=== PATIENT | female | born 1990 | race Caucasian/White ===

== ENCOUNTER 2024-05-15 18:50 | Inpatient (IN) | payer MEDICARE, SELFPAY ==
[2024-05-15] VITALS (29 sets, daily range): BP systolic 115–177; BP diastolic 47–96; BMI 36.2; BMI 33.8
--- NOTE | 2024-05-15 12:46 | ED.GENMED ---
History of Present Illness
General
Chief Complaint: Withdrawal Symptoms
Source: patient
Time Seen by Provider: 05/15/24 12:36
History of Present Illness
History of Present Illness:
33-year-old female presents to the emergency room stating she is withdrawing from fentanyl and tranc. Her last use was about 6 AM. She states she typically uses about 50 bags a day. She insufflated her drugs. She denies any IV drug use. She
cannot have Suboxone because it makes her sick evidently. Patient states she uses 40-50 bags a day.
Past History
Past History
ED Past Medical History: None
ED Past Surgical History: None
Social History
Tobacco: Smoker
Phy Exam
Physical Exam
Physical Exam:
General: Awake, Alert, Oriented X3. Tremulous, vomiting
Vitals: Tachycardic
Head: Atraumatic
Eyes: Pupils equal, EOMI
Throat: Airway intact, no exudates
Neck: Trachea midline
Lungs: Clear and equal b/l
Heart: Tachycardic, regular rate, no murmurs
Abd: Soft, Nontender, No pulsatile mass
Neuro: Nonfocal
Skin: Warm, dry, no rash
Extremities: pulses equal b/l, no edema
Course
Orders/Labs/Results
Orders:
Orders
05/15/24 12:42
Ondansetron Injectable [Zofran] 4 mg IV Q6HPRN PRN
05/15/24 12:46
0.9% Sodium Chloride 500 ml [Nss] 500 ml IV BOLUS
05/15/24 12:48
Test Result ONCE
05/15/24 13:00
Acetaminophen [Tylenol] 1,000 mg PO Q8H
Clonidine [Catapres] 0.1 mg PO Q6H
05/15/24 13:05
Electrocardiogram (*1) Urgent
Reason for Study: QTc Monitoring
05/15/24 13:06
EKG- Treatment ONCE
Haloperidol Lactate [Haldol] 5 mg IM NOW STA
05/15/24 13:25
ALT (SGPT) Urgent
Comment: ADD ON
AST (SGOT) Urgent
Comment: ADD ON
Alkaline Phosphatase Urgent
Comment: ADD ON
Basic Metabolic Panel Urgent
Complete Blood Count/With Diff Urgent
HCG, Serum Qualitative Screen Urgent
Magnesium Urgent
Comment: ADD ON
Phosphorus Urgent
Comment: ADD ON
Total Bilirubin Urgent
Comment: ADD ON
05/15/24 13:53
Add On- LAB Urgent
Tests Added?: hcg
05/15/24 14:19
0.9% Sodium Chloride 1000 ml [Nss] 1,000 ml IV BOLUS
Ondansetron Injectable [Zofran] 4 mg IV NOW STA
05/15/24 15:32
Abdomen Xray - 1 View [CR Abdomen - 1 View] Urgent
Comment:
Reason For Exam: constipation
05/15/24 15:41
Lorazepam [Ativan] 1 mg IV NOW STA
05/15/24 17:17
Clonidine [Catapres] 0.1 mg PO NOW STA
05/15/24 17:27
Add On- LAB Urgent
Tests Added?: T. Bili, AST, ALT, Alk Phos, Magnesium, Phosphorous
05/15/24 17:28
Potassium Chloride [KCl] 40 meq 0.9% Sodium Chloride 250 ml [Nss] 250 ml IV NOW
05/15/24 17:32
0.9% Sodium Chloride 1000 ml [Nss] 1,000 ml IV BOLUS
Lorazepam [Ativan] 1 mg IV NOW STA
05/15/24 17:41
Prochlorperazine [Compazine] 10 mg IV NOW STA
05/15/24 17:57
Admit/Transfer Patient As Directed
Co-Sign Provider:
Level of Care: Inpatient admission
Assign to:: ICU
Physician / Group: Belinda Lopez
Diagnosis: severe opiate withdrawal
Reason for Hospitalization: severe opiate withdrawal
Expected length of stay greater than two midnights?: Yes
ELOS- Estimated Length of Stay in days: 3
I certify the patient meets the requirements for IP care: Yes
Code Status As Directed
Resuscitation Status: Full Code
PRN Pain Medication Management As Directed
May give lesser potent ordered pain med per pt: Yes
preference::
Protocol:: Medication orders for pain may be administered in a
manner that supports deferring to patient preference
when the pt is:
- Requesting an ordered lesser potent pain medication.
Least to most potent pain medications are defined
as: acetaminophen < NSAID < tramadol < opioids
(morphine, oxycodone, hydromorphone).
- Requesting a lesser dose of the same medication IF
ORDERED.
- Requesting a less intrusive route of administration
if both routes are prescribed by the provider (PO <
IV).
05/15/24 18:00
Dexmedetomidine 400 Mcg/100 ml [Precedex] 400 mcg in 100 ml IV PER PROTOCOL
Indication:: Light Sedation
Goal:: RASS 0 to -2
Maximum dose in mcg/kg/hr:: 0.7
Initial dose in mcg/kg/hr:: 0.1
Titration Instructions:: Titrate by 0.1-0.2 mcg/kg/hr every 30 minutes until RASS 0 to -2 achieved.
Taper Instructions:: If RASS is at or below goal for 4 consecutive hours, decrease infusion by
Taper Instructions:: 0.2 mcg/kg/hr every 2 hours to off.
Over-sedation Instructions:: If CPOT 0-2 (at goal) AND RASS -3 to -5 (below goal) decrease sedative by
Over-sedation Instructions:: 50% first. If pain score remains at goal and RASS remains below goal in
Over-sedation Instructions:: 1 hour, decrease opioid infusion by 50%.
Notify provider:: for sustained HR < 50 bpm or SBP < 90 mmHg
05/15/24 18:06
Tizanidine [Zanaflex] 2 mg PO NOW STA
Abnormal Lab Results
05/15/24
13:25
WBC 19.7 H 10^3/uL
(4.8-10.8)
MCH 31.5 H pg
(27.0-31.0)
Abs Immat Gran (auto) 0.2 H 10^3/uL
(0-0.05)
Absolute Neuts (auto) 15.8 H 10^3/uL
(1.4-6.5)
Absolute Monos (auto) 1.8 H 10^3/uL
(0.1-0.6)
Immature Gran % 1.1 H %
(0-0.5)
Neutrophils % 80.1 H %
(42.2-75.2)
Lymphocytes % 9.5 L %
(20.5-51.1)
Potassium 3.3 L mmol/L
(3.5-5.1)
Chloride 97 L mmol/L
(98-107)
Carbon Dioxide 20 L mmol/L
(22-30)
Glucose 189 H mg/dl
(70-99)
05/15/24 13:25
05/15/24 13:25
Vital Signs
Initial and Last Documented VS:
Initial Vital Signs
Temp Pulse Resp BP Pulse Ox
99.4 F 128 22 145/92 99
05/15/24 10:27 05/15/24 10:27 05/15/24 10:27 05/15/24 10:27 05/15/24 10:27
Last Documented Vital Signs
Temp Pulse Resp BP Pulse Ox
98.9 F 148 20 132/73 96
05/15/24 17:10 05/15/24 17:15 05/15/24 17:10 05/15/24 17:10 05/15/24 17:10
MDM/Problems Addressed
Differential Diagnosis Includes:
Opiate withdrawal, xylazine w/d,
MDM/Problems Addressed:
Patient presents in acute withdrawal. She states she cannot tolerate buprenorphine. Besides her last use was this morning. Patient treated with her xylazine withdrawal protocol. Minimal improvement. Patient will require hospitalization
*Pulse Oximetry
Patient hypoxic: no
*EKG
Interpreted by ED Provider?: Yes
Interpretation: abnormal
Heart Rate: 139
Rate: tachycardiac
Rhythm: sinus tachycardia
Interval: normal interval
QRS Pattern: normal QRS
Ischemia: non-specific ST changes
*Supervisor [employer] Installations Interpretation
Rate: tachycardiac
Interpretation: abnormal
Rhythm: sinus tachycardia
*Critical Care Note
Total Time (30-74mins, 75-104mins- exclusive of procedures): 40 min
comment:
Critical care statement: A total of 40 minutes of critical care time was provided for this patient. This includes management of unstable vital signs, evaluation of the patient at bedside, reviewing the patient's pertinent medical records, discussion
with consultants, review of old EKGs and review of pertinent medical records. This time with separate from time utilized to perform the aforementioned documented procedures
ED Attending Note
-
Portions of this chart may have been created with voice recognition software.� Occasional wrong word or��sound alike� substitutions may have occurred due to the inherent limitations of voice recognition software.
Discharge Plan
Departure
Patient Disposition: Admit
Date of Disposition: 05/15/24
Time of Disposition: 17:09
Presentation/result/management discussed w/ accepting MD/DO: Hospitalist
Condition: Fair
Discharge Problem:
Opiate withdrawal, Opiate dependence
Instructions: Drug Misuse and Addiction (DC), Constipation, Adult ED
Prescriptions:
No Action
No Current Medications
0
Referrals:
UNKNOWN - PT NOT,INTERVIEWE [Family Provider] -
Interventions
Interventions:
*Risk Screen - Suicide Last Done: 05/15/24 10:27
*General Assessment Last Done: 05/15/24 10:27
*Neglect/Abuse Screening Last Done: 05/15/24 10:27
ED- Fall Risk Assessment Last Done: 05/15/24 13:06
*ED COVID-19 Vaccine History Last Done: 05/15/24 13:06
ED- Neurological Assessment Last Done: 05/15/24 13:51
ED-Psychological Assessment Last Done: 05/15/24 13:51
Discharge Date and Time
Print Language: KITTITIAN
[2024-05-15] MEDS: HALDOL 5 MG IM (13:21)
[2024-05-15] MEDS: NSS 500 IV (13:24)
[2024-05-15] MEDS: ZOFRAN 4 MG IV ×3 (13:25→20:36)
[2024-05-15] MEDS: CATAPRES 0.1 MG PO (13:34)
[2024-05-15] MEDS: TYLENOL 1000 MG PO ×2 (13:36→17:00)
[2024-05-15 13:39] LABS: % Basophils 0.4 % (0-2); % Immature Granulocytes 1.1 % (0-0.5); % Lymphocytes 9.5 % (20.5-51.1); % Monocytes 8.9 % (1.7-9.3); % Neutrophils 80.1 % (42.2-75.2); Absolute Basophils 0.1 10^3/uL (0-0.2); Absolute Immature Granulocytes 0.2 10^3/uL (0-0.05); Absolute Lymphocytes 1.9 10^3/uL (1.2-3.4); Absolute Monocytes 1.8 10^3/uL (0.1-0.6); Absolute Neutrophils 15.8 10^3/uL (1.4-6.5); Hematocrit 40.1 % (37.0-47.0); Hemoglobin 14.1 g/dL (12.0-16.0); Mean Corp Hgb Conc. 35.2 g/dL (33.0-37.0); Mean Corpuscular Hgb 31.5 pg (27.0-31.0); Mean Corpuscular Volume 89.7 fL (81.0-99.0); Nucleated Red Blood Cells % 0 %; Platelet Count 389 10^3/uL (130-400); Red Blood Cell Count 4.47 10^6/uL (4.20-5.40); Red Cell Dist. Width 13.7 % (11.5-14.5); White Blood Cell Count 19.7 10^3/uL (4.8-10.8)
[2024-05-15 13:49] LABS: Blood Urea Nitrogen 10 mg/dl (7-17); Calcium 9.6 mg/dl (8.4-10.2); Carbon Dioxide 20 mmol/L (22-30); Chloride 97 mmol/L (98-107); Glucose 189 mg/dl (70-99); Potassium 3.3 mmol/L (3.5-5.1); Sodium 137 mmol/L (135-145); eGFR > 60.00
[2024-05-15 14:16] LABS: HCG, Serum Qualitative Screen Negative
[2024-05-15] MEDS: NSS 1000 IV ×2 (14:33→17:41)
--- NOTE | 2024-05-15 15:30 | EDRN ---
this AUDIO VISUAL PRODUCTION SPECIALIST spoke with SUNDAY Bose regarding this pt . Per Lidya, this pt refused a [facility] assessment from Lidya and has been at [facility] in the past. Per Lidya, the pt was at [facility] a few days ago and the pt
told [facility] staff that she had not had a bowel movement in one month. [facility] the [facility] needs to be medically cleared and they require imaging studies to confirm there is no medical emergency in regards to the pts bowels. Per
Lidya, [facility] will accept the pt and can take her to their facility tonight pending the above clearances. ER Dr Scales was notified of above.
[facility] Fax # -> [phone]
SUNDAY Bose (until 8pm) contact # -> [phone]
[2024-05-15] MEDS: ATIVAN 1 MG IV ×3 (15:59→18:49)
--- NOTE | 2024-05-15 17:23 | HPS.HSE ---
Family Physician
-
Family Physician: INTERVIEWE UNKNOWN - PT NOT
Chief Complaint
-
withdrawal
History of Present Illness
Ms. Gisselle Sarmiento is a 33 yo woman with hx fentanyl and Xylazine abuse who presents to the ER with withdrawal. Patient reports using 40-50 bags/day, her last dose was 6AM.
Patient denies alcohol use. States doesn't use other drugs. She is in bed shaking after having vomited, unable to hold prolonged conversation because of discomfort.
She states that she had a bad reaction to Suboxone in past, 24 hours after last dose of opiate.
Denies chest pain. No recent fevers.
Medical History
Past Medical History
Past Medical History: Reports Other (opiate abuse)
Past Surgical History: Reports None
Social History
Tobacco: Smoker
Drug: Other (Fentanyl and Xylazine)
Family History
Family History: Not pertinent
Allergies / Home Medications
Allergies reflects when Allergies were last updated in [employer].
Home Medications with original date entered in [employer]
Allergy/Medication List:
Allergies
Allergy/AdvReac Type Severity Reaction Status Date / Time
Latex, Natural Rubber Allergy Intermediate Swelling Verified 05/15/24 10:27
Sulfa (Sulfonamide Allergy Intermediate Hives Verified 05/15/24 10:27
Antibiotics)
Home Medications
No Meds [No Current Medications] 05/15/24
Review of Systems
-
History Source: Patient
A 12 point ROS was completed and negative except as noted: Yes
Physical Exam
Vital Signs
Vital Signs
Temp Pulse Resp BP Pulse Ox
98.9 F 148 20 132/73 96
05/15/24 17:10 05/15/24 17:15 05/15/24 17:10 05/15/24 17:10 05/15/24 17:10
Physical Exam
General: Other (patient with whole body tremors after vomiting, looks very uncomfortable )
HEENT: PERRLA
Respiratory: No Wheezes
Cardiac: S1/S2 and Tachycardia
GI: Soft and Non Tender
Musculoskeletal: Other
Neuro: AO x 3
Psych: Anxious
Laboratory Results
-
05/15/24 13:25
05/15/24 13:25
Data Reviewed
-
Diagnostic Radiology: Report Reviewed by me
Lab Data: Labs Reviewed by me
Impression/Plan
-
Ms. Gisselle Sarmiento is a 33 yo woman with hx fentanyl and Xylazine abuse who presents to the ER with withdrawal. Her last dose of Fentanyl was 6AM.
Triage VS: T 99.4, P 128, RR 22, BP 145/92, SpO2 99%
LABS: WBC 19.7, Hg 14.1, PLT 389, Na 137, K+ 3.3, C 97, CO2 20, BUN 10, Cr 0.7, Glucose 189
HCG negative
EKG with sinus tachycardia; QTc 377
Abdominal X-Ray
IMPRESSION:
Large amount of fecal material throughout the colon. No evidence of intestinal obstruction
MAR: 2L IVF, IM Haldol, IV Ativan, IV Zofran, Clonidine
Fentanyl and Xylazine Withdrawal
Tachycardia
Nausea/Vomiting
-patient remains tachy to 150's, with nausea/vomiting and restlessness s/p medication administration above
-discussed with Dr. Curry, recommends against methadone, states IV Precedex gtt OK
-will admit to ICU
-IV Precedex gtt
-Tizanidine now and PRN
-discussed with pharmacy and will discuss low dose PRN Buprenorphine with patient (she initially refused given reported bad reaction to Suboxone after 24 hours after last dose)
-MSAS protocol for PRN Ativan administration (no drinking history, but will help guide benzo administration)
-IV Zofran/Compazine PRN
-LR @ 150
Opiate Abuse
-patient is accepted but needs to be medically stabilized first
Constipation
-X-ray with e/o constipation but anticipate patient to have loose stools with withdrawal
-bowel regimen ordered PRN when patient more stable if needed
Hypokalemia
-replete
-check Mag and Phos
DVT PPx Lovenox subQ
FULL CODE
Total Critical Care Time 60 minutes. I was immediately available to the patient and staff. I personally examined, reviewed labs, diagnostic images/reports, interpretations, treatment plans, discussed patient care with other providers and family
or caregivers (if patient is unable to make decisions), entered orders as appropriate and documented the medical record.
[2024-05-15] MEDS: COMPAZINE 10 MG IV (17:52)
[2024-05-15] MEDS: PRECEDEX 100 IV (18:23)
[2024-05-15 18:30] LABS: AST (SGOT) 92 U/L (14-36); Alkaline Phosphatase 89 U/L (38-126); Total Bilirubin 0.3 mg/dl (0.2-1.3)
[2024-05-15] MEDS: ZANAFLEX 2 MG PO (18:33)
[2024-05-15 18:36] LABS: Magnesium 1.5 mg/dl (1.6-2.3); Phosphorus 3.6 mg/dl (2.5-4.5)
[2024-05-15 18:46] LABS: ALT (SGPT) 113 U/L (0-35)
[2024-05-15] MEDS: OFIRMEV 100 IV (19:12)
[2024-05-15 19:55] LABS: COVID-19 Antigen Negative (Negative)
--- NOTE | 2024-05-15 19:55 | PTCARENOTE ---
Patient received from the ED via stretcher accompanied by RN. Transferred and admitted to ICU bed 3366. Patient is extremely agitated, rigid, tremulous, nauseated with dry heaving and at times old bile, dark emesis. She is currently on Precedex gtt
at 0.2mcg/kg/hr. Precedex gtt titrated as needed according to MSAS. She is also receiving Ativan prn per MSAS, see MAR. She is slightly diaphoretic. ST with HR 130-150s on CM. Temp 102.2F. CHG complete bath given with complete linen change. Purewick
placed. She follows commands at times but is inconsistent. BBS with UL clear anteriorly, diminished posteriorly and in bases, shallow respirations. S1S2 tachy. She is oriented to self, person and place but confused to time, QUINTERO. Zofran given prn
nausea. Scattered bruises of extremities and abdomen. Left groin at labia with MASD. Zinc oxide to area.
[2024-05-15] MEDS: TYLENOL PO ×2 (20:20→21:39)
[2024-05-15] MEDS: LR 1000 IV (20:31)
[2024-05-15] MEDS: ATIVAN 2 MG IV ×3 (20:36→23:42)
[2024-05-15] MEDS: MAGNESIUM SULFATE 100 IV (20:37)
[2024-05-15] MEDS: THIAMINE INJECTION 200 MG IV (20:38)
[2024-05-15] MEDS: KCL 270 MEQ IV (20:52)
[2024-05-15] MEDS: LOVENOX 40 MG SC (21:00)
[2024-05-15] MEDS: CATAPRES PO (21:01)
[2024-05-15] MEDS: SUBUTEX SL (21:08)
[2024-05-16] VITALS (36 sets, daily range): BP systolic 90–171; BP diastolic 56–121; BMI 34.2
--- NOTE | 2024-05-16 00:15 | SUR.OPER ---
No significant change in patient assessment. Patient remains markedly tremulous and tachycardic, with slight diaphoresis. Continues to require prn Ativan. Currently on Precedex at 0.5mcg/kg/min. HNV since admission, received 2 L IVF bolus in the ED.
Bladder scan shows 387cc in bladder. Straight cath for urine tests ordered and to relieve bladder pressure. 450cc yellow urine via straight cath. Purewick remains in place. Incontinent of moderate formed brown BM. Partial cares rendered with linens
changed.
[2024-05-16 01:02] LABS: Fentanyl, Urine Positive (Negative)
[2024-05-16 01:02] LABS: Urine Albumin Negative (Neg - Trace); Urine Bilirubin Negative (Negative); Urine Character Clear (Clear); Urine Color Yellow; Urine Glucose Negative (Negative); Urine Ketone 3+ (Negative); Urine Leukocyte Negative (Negative); Urine Nitrite Negative (Negative); Urine Occult Blood Negative (Negative); Urine Urobilinogen Negative (Neg - 1+)
[2024-05-16 01:06] LABS: Amphetamines Negative (Negative); Barbiturates Negative (Negative); Benzodiazepines Positive (Negative); Buprenorphine Negative (Negative); Cocaine Negative (Negative); Marijuana Negative (Negative); Methadone Negative (Negative); Methamphetamines Negative (Negative); Opiates Positive (Negative); Phencyclidine Negative (Negative); Tricyclic Antidepressants Negative (Negative)
[2024-05-16] MEDS: SUBUTEX SL ×2 (01:29→03:37)
[2024-05-16] MEDS: LR 1000 IV ×3 (03:10→15:15)
[2024-05-16] MEDS: PRECEDEX 100 IV ×2 (03:38→10:25)
--- NOTE | 2024-05-16 04:30 | PTCARENOTE ---
Patient appears to be resting comfortably when undisturbed with brief episodes of calling out, gross tremors and increased tachycardia. Reoriented as needed. Rest of physical assessment essentially unchanged. VSS. Patient is easily agitated and
grabs violently at staff with repositioning or cares. Emotional support and encouragement given as needed.
[2024-05-16 05:28] LABS: % Basophils 0.2 % (0-2); % Immature Granulocytes 0.8 % (0-0.5); % Lymphocytes 16.8 % (20.5-51.1); % Monocytes 17.4 % (1.7-9.3); % Neutrophils 64.8 % (42.2-75.2); Absolute Immature Granulocytes 0.1 10^3/uL (0-0.05); Absolute Lymphocytes 2.5 10^3/uL (1.2-3.4); Absolute Monocytes 2.6 10^3/uL (0.1-0.6); Absolute Neutrophils 9.7 10^3/uL (1.4-6.5); Hematocrit 30.8 % (37.0-47.0); Hemoglobin 10.9 g/dL (12.0-16.0); Mean Corp Hgb Conc. 35.4 g/dL (33.0-37.0); Mean Corpuscular Hgb 32.4 pg (27.0-31.0); Mean Corpuscular Volume 91.7 fL (81.0-99.0); Nucleated Red Blood Cells % 0 %; Platelet Count 263 10^3/uL (130-400); Red Blood Cell Count 3.36 10^6/uL (4.20-5.40); Red Cell Dist. Width 14.1 % (11.5-14.5); White Blood Cell Count 14.9 10^3/uL (4.8-10.8)
[2024-05-16 05:35] LABS: INR 1.12; PT 14.7 Sec (11.4-14.6)
[2024-05-16 05:36] LABS: APTT 36.9 Sec (23.4-35.0)
[2024-05-16 05:44] LABS: ALT (SGPT) 60 U/L (0-35); AST (SGOT) 48 U/L (14-36); Alkaline Phosphatase 79 U/L (38-126); Blood Urea Nitrogen 3 mg/dl (7-17); Calcium 7.6 mg/dl (8.4-10.2); Carbon Dioxide 23 mmol/L (22-30); Chloride 106 mmol/L (98-107); Direct Bilirubin 0.2 mg/dl (0.0-0.4); Estimated Creatinine Clearance > 125 ml/min; Glucose 97 mg/dl (70-99); Magnesium 2.2 mg/dl (1.6-2.3); Potassium 3.2 mmol/L (3.5-5.1); Sodium 141 mmol/L (135-145); Total Bilirubin 0.3 mg/dl (0.2-1.3); Total Protein 5.2 g/dl (6.3-8.2); eGFR > 60.00
[2024-05-16] MEDS: TYLENOL PO (06:00)
--- NOTE | 2024-05-16 07:15 | PTCARENOTE ---
Report given verbally to oncDaniele hale RN. Questions answered.
--- NOTE | 2024-05-16 07:55 | CON.INTV ---
Consultation
Consultation Request
Date/Time Consultation Requested: 05/16/2024
Date/Time Consultation Performed: 05/16/2024
Reason for Consultation: Critical care
Medical History
-
History of Present Illness:
History obtained from the chart and some history from the patient. 33-year-old female with history of regular fentanyl xylazine abuse. She apparently presented to the ED with withdrawal symptoms. Per additional history (per nursing), patient was
being assessed to go to inpatient rehabilitation and had told provider that she had not had a bowel movement in a month. She also was having emesis with any p.o. intake. Abdominal imaging done in the ED did show obstipation but did not show any
acute findings. Upon arrival to [facility], temperature 99.4, pulse 128, breathing at 22, blood pressure 145/92, 99%. Patient did develop tachycardia as high as in the 170s. She was given 1 dose of tizanidine p.o. Patient stated in the
ER that she does not take buprenorphine due to a reaction although this is not clear. We are asked to help from critical care standpoint
Regarding the patient, she was being evaluated for admission to inpatient rehabilitation on 05/16 at [facility].
She was also hospitalized 1 month ago for inpatient detox at [facility]
She was treated for dental abscess sometime in the past few months although patient cannot recall details. She states she is losing teeth
.
PMH: Chronic opiate use, dental abscess, inpatient detoxification admission [facility] April 2024
Past Medical History
Past Medical History: None (See above)
Past Surgical History: None (See above)
Social History
Tobacco: Smoker (Smokes cigarettes daily)
Alcohol: None
Drug: Other (Daily fentanyl use, obtains from her dealer)
Personal: Other (Lives with her boyfriend, has 2 children 13 and 15)
Living: With Family (Lives with her boyfriend)
Employment: Not Employed
Family History
Family History: Other (4 sisters healthy. Family history negative for blood clots)
Allergies / Home Medications
Allergies
Allergy/AdvReac Type Severity Reaction Status Date / Time
Latex, Natural Rubber Allergy Intermediate Swelling Verified 05/15/24 10:27
Sulfa (Sulfonamide Allergy Intermediate Hives Verified 05/15/24 10:27
Antibiotics)
Home Medications
�Medication �Instructions �Recorded �Confirmed �Last Taken �Type
No Meds [No Current Medications] 05/15/24 05/15/24 Unknown History
Review of Systems
-
Unable to Obtain full review of systems at this time due to: Acuity
Vitals / Labs / Diagnostic Testing
Vital Signs
Temp Pulse Resp BP Pulse Ox
99.7 F 120 33 144/78 97
05/16/24 03:29 05/16/24 07:30 05/16/24 07:30 05/16/24 07:30 05/16/24 07:30
Lab Data
05/16/24 05:02
05/16/24 05:02
Laboratory Results
05/16/24
05:02
PT 14.7 H
INR 1.12
APTT 36.9 H
Microbiology
05/15/24 19:28 Nasal Swab Influenza Types A & B (JOSE) - Final
Negative for Influenza A & B, NAAT
Negative results must be combined with clinical observations
and patient history.
Nucleic Acid Amplification test (NAAT)performed on the
[employer] platform.
Diagnostic Testing:
Physical Exam
-
HEENT: Normocephalic, Anicteric and Other (Poor dentition, missing teeth)
Cardiovascular: S1/S2, Regular Rhythm (Tachycardic), Murmur (n) and Rub
Respiratory: Wheeze (n), Rales (n), Rhonchi (n) and Non-Labored Respirations
GI: Soft, Non Distended (Obese) and Non Tender
Neurology: No Motor Deficits (Spontaneously moving extremities, not following commands) and Other (Intermittently agitated)
Skin: Good Color (Mild erythematous rash involving her face , no warmth)
General: Comfortable
Assessment
-
33-year-old female with history of fentanyl, xylazine abuse, 40-50 bags per day per records, last dose 05/15 at 6:00 in the morning, presents with 'withdrawal symptoms'. Additional history suggests chronic constipation, no bowel movement for about a
month. Patient was given 1 dose of oral tizanidine in the ED. We are asked to help from critical care standpoint
Tachycardia, heart rate 160s
Leukocytosis
Anemia, hemoglobin 10.9
Admission hemoglobin 14.1
Hypokalemia
Mild transaminitis
Positive tox screen (opiates, fentanyl, benzodiazepine)
Obstipation per imaging
Questionable lack of bowel movement for 1 month, emesis preadmission (details unclear)
Patient denies
History of fentanyl/xylazine use, daily
Was being evaluated for inpatient rehabilitation
Conditions present prior to admission
Recent history of dental abscess requiring antibiotics
Recent hospital stay at [facility] for inpatient detoxification 1 month prior
Plan/recommendations
At this time, patient remains critically ill. Heart rate in the 170s, presently in the 110s. Patient is at least able to provide history.
Leukocytosis noted
There is no clear source of infection at this time
Could not confirm whether patient has been having emesis preadmission
Records suggest possible obstipation, lack of bowel movement however patient had a bowel movement in the last 24 hours as an inpatient
Abdominal exam is benign
Moving forward
Continue with supportive care
Remains on IV fluids, lactated Ringer's
Follow-up I's and O's
Advance diet as able. Patient was apparently not tolerating and spitting up oral medications earlier
Presently remains on Precedex
Continue thiamine, folic acid
Xylazine withdrawal protocol will continue
Continue to follow COWS score
Patient denies any alcohol use therefore do not suspect we need MSAS protocol
Will decrease Ativan dose to as needed for extreme agitation
Continue tizanidine as able, clonidine per protocol
Patient with xylazine use in the past
DVT prophylaxis: Continue Lovenox
GI prophylaxis: Not indicated at this time
Attempted to contact boyfriend, no answer
According to patient, pts 2 children live with the boyfriend
Reviewed with critical care nursing, respiratory care, pharmacy, case management
TCCT 35 min
--- NOTE | 2024-05-16 08:00 | PTCARENOTE ---
Pt rec'd from night RN, restless in the bed, turning side to side, pulling at equipment and wires. AOx3 drowsy and arousable, COWS score 19 at this time, no c/o pain. Precedex gtt infusing to LAC, IVF to L hand, precedex increased -see flowsheet.
Plan of care reviewed. Pt noted to be in sinus tach on tele, HR in 120s, improved from previous shift. Pt with occ episodes of apnea while sleeping, desat to 81% when trialed on room air, remains on 2L nasal cannula 02 at this time. Lungs dim, nasal
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 Pt had previously been constipated per reports/notes. Plan discussed with care team on rounds. Safe environment maintained. Bed alarm activated.
[2024-05-16] MEDS: SUBUTEX 1 MG SL ×5 (08:46→22:12)
[2024-05-16] MEDS: THIAMINE INJECTION 200 MG IV ×2 (08:46→20:34)
[2024-05-16] MEDS: FOLVITE PO (08:47)
[2024-05-16] MEDS: FOLVITE 50.2 MG IV (11:56)
[2024-05-16] MEDS: KCL 270 MEQ IV (12:53)
--- NOTE | 2024-05-16 13:00 | PTCARENOTE ---
Precedex tapered per protocol-see flowsheet. Pt more awake, agreeable to taking some PO intake. Diet ordered, lunch tray arrived. Pt taking sips of raina iraida with assistance, some nausea and spitting up at times. Safe environment maintained.
--- NOTE | 2024-05-16 13:23 | W.PN.HOSP.TC ---
Today's Communication/Plan
-
COWS protocol
Psych recs
wean off precedex gtt
Advance diet
IVF in the interim
Bowel regimen
Assessment / Plan
Assessment / Plan
Fentanyl and Xylazine Withdrawal
Tachycardia
Nausea/Vomiting
-patient remains tachy to 150's, with nausea/vomiting and restlessness s/p medication administration above on admission
-try to wean off precedex gtt and monitor
-Tizanidine now and PRN
-discussed with pharmacy and will discuss low dose PRN Buprenorphine with patient (she initially refused given reported bad reaction to Suboxone after 24 hours after last dose) but taking it now
-[facility] protocol for PRN Ativan administration (no drinking history, but will help guide benzo administration)-can reduce ativan doses
-IV Zofran/Compazine PRN
-LR @ 150
-advanced diet and monitor
Opiate Abuse
-patient is accepted but needs to be medically stabilized first
Constipation 2/2 opiate abuse
-X-ray with e/o constipation but anticipate patient to have loose stools with withdrawal
-had bm in last 24h
-start miralax/senna/colace
Leukocytosis likely stress/reactive/constipation
-No signs of infection. UA negative. Blood cultures in lab. No productive cough. Not concern for pneumonia at this time.
Hypokalemia
Hypophosphatemia
-replete
-check Mag and Phos
DVT PPx Lovenox subQ
FULL CODE
Anticipated Discharge: > 48 hours
Subjective/Interval History
-
Date of Service: May 16, 2024
awake and able to provide some history
does fall asleep as on precedex
States she snorts drugs. Denies prior history of IV drug usage.
Objective Data
-
Labs:
Laboratory Results
05/16/24
05:02
WBC 14.9 H
Hgb 10.9 L D
Hct 30.8 L
Plt Count 263 D
PT 14.7 H
INR 1.12
APTT 36.9 H
Sodium 141
Potassium 3.2 L
Chloride 106
Carbon Dioxide 23
BUN 3 L
Creatinine 0.4 L
Glucose 97
Calcium 7.6 L D
Total Bilirubin 0.3
AST 48 H
ALT 60 H
Alkaline Phosphatase 79
Vital Signs:
Vital Signs
Temp Pulse Resp BP Pulse Ox
98.6 F 106 18 163/69 97
05/16/24 08:39 05/16/24 13:00 05/16/24 13:00 05/16/24 13:00 05/16/24 13:00
I&O
05/15/24 05/16/24 05/17/24
06:59 06:59 06:59
Intake Total 2061.5 / 2224.9 1268.3 / 1268.3
Output Total 450 / 450
Balance 1611.5 / 1774.9 1268.3 / 1268.3
Physical Exam
-
General: Appears Chronically Ill
HEENT: Normocephalic and Atraumatic
Respiratory: Clear to Auscultation (anteriorly )
Cardiac: Regular Rhythm, S1/S2 and Tachycardic; Negative Murmur, Rub or Gallop
GI: Soft, Nontender, Nondistended and Normal Bowel Sounds; Negative Organomegaly
Rectal: Deferred by Provider
Musculoskeletal: No Clubbing, No Cyanosis and No Edema
Skin: Negative Rash
Neuro: Nonfocal/Grossly Intact
Psych: Calm
Data Reviewed
-
Total Time Spent with Patient (in minutes): 55
--- NOTE | 2024-05-16 14:29 | CS.PSYCHR ---
Consult Summary - Psychiatry
-
Pt is a 33 yo female with fentanyl and Xylazine abuse who presented to the ER c/o withdrawal. Patient reported using 40-50 bags/day, her last dose was 6AM the day of admission. Patient denied alcohol or other drug use. Pt noted with N/V, tremor,
aches. Pt initially refused Subutex, stating past negative reaction within 24 hours of last opioid use. Pt took Subutex 1 mg this morning. Pt currently sedated on Precedex. Reviewed with nursing staff. Pt was on MSAS, received Ativan 2 mg
yesterday, discontinued today.
Psych Hx: none known
Substance use: reportedly Fentanyl and Xylazine
MSE: sedated, resting quietly. Unable to interview
Imp: Opioid and Xylazine use, severe
Rec: would utilize the Subutex protocol; would expect daily dose to be 8- 16 mg to manage withdrawal symptoms
would encourage drug rehab when medically stabilized
will follow loosely
--- NOTE | 2024-05-16 14:35 | CM ---
CM following rte: discharge planning.
Reviewed pt's chart, met with pt.
Pt is a 33 year old female, admitted with primary dx of Fentanyl and Xylazine Withdrawal.
Pt reports she lives with boyfriend and 2 children in an apartment, independent [employer]. Pt reports that [facility] already involved regarding well being of her children and per pt her children with be with her as long as she
stays sober. Emotional support and encouragement to get treatment offered and provided. Pt stated she has parents and she has not been talking to them for a while and per pt, her parents are very upset about her drugs addiction.
Pt stated she already met with [facility] on the weekend in ED and she has a room at [facility].
PCP: pt stated she does not have PCP;
Pharmacy: [facility].
D/C plan: [facility] inpatient D&[facility] rehab. [facility] following.
CM will follow to assit pt with discharge to [facility] inpatient residential D[facility] rehab.
[2024-05-16] MEDS: TYLENOL 1000 MG PO ×2 (14:59→21:49)
[2024-05-16] MEDS: ZOFRAN 4 MG IV ×2 (15:01→21:50)
--- NOTE | 2024-05-16 15:08 | PTCARENOTE ---
Pt was unable to void this shift, complaining of feeling need to urinate but could not. Pt straight cath'd by another RN for 900 mls yellow urine. Pt more awake, conversant, cooperative with staff this afternoon. No complaints of pain at this time.
Precedex tapered per protocol/assessments. See flowsheet.
--- NOTE | 2024-05-16 17:40 | PTCARENOTE ---
Precedex weaned to off, see flow sheet for COWS assessments. Last score 8. Pt has been cooperative with cares and taking PO meds safely. Continues with poor appetite.
[2024-05-16] MEDS: ZANAFLEX 2 MG PO (18:10)
[2024-05-16] MEDS: SODIUM PHOSPHATE 255 MEQ IV (18:10)
[2024-05-16] MEDS: COMPAZINE 10 MG IV ×2 (18:10→23:53)
[2024-05-16] MEDS: LOVENOX 40 MG SC (18:11)
[2024-05-16] MEDS: ATIVAN 1 MG PO ×2 (18:36→22:10)
--- NOTE | 2024-05-16 19:25 | PTCARENOTE ---
Assisted pt to bedside commode to have another hard formed brown BM. Report given to night EDGARDO Hurley.
--- NOTE | 2024-05-16 20:00 | PTCARENOTE ---
Patient received in bed awake but groggy. Very agitated and restless, marked gross motor tremors, face moist, tachycardic. She is oriented. COWS score is 20. Scheduled Subutex given as ordered. She says that she hurts 'all over.' Prn Toradol given
for discomfort. BBS clear but shallow, respirations tachypneic. S1S2 tachycardic. Abdomen obese, c/o cramping. Occasional nausea. ST 110-120s on CM.
[2024-05-16] MEDS: TORADOL 10 MG IV (20:28)
[2024-05-16] MEDS: SENOKOT-S 1 TABLET PO (20:30)
--- NOTE | 2024-05-16 22:30 | PTCARENOTE ---
Addendum entered by Mei Paulino RN 05/17/24 02:52:
[facility] notified, extra dose of 1mg Subutex SL given.
Original Note:
Patient is incontinent of BM. COWS 25. Po meds were given including Ativan given prn. Patient vomited all she took in. Zofran given prn. Complete cares given with complete linen change. IV Ativan since patient vomited meds. Emotional support and
encouragement provided.
--- NOTE | 2024-05-16 23:30 | PTCARENOTE ---
Patient continues to be nauseated and have episodes of vomiting. Compazine given prn. HNV. Bladder scanned for 423cc. Straight cath for 450cc natalie urine. Patient continues to become more agitated and difficult to redirect. ST 120s. Temp 100.7F.
Incontinent of Stool. Complete cares again given due to emesis and incontinence, complete linens changed. COWS has increased to 33. Due to worsening of symptoms, Precedex gtt restarted, titrated for improvement of COWS score and patient comfort.
[2024-05-17] VITALS (21 sets, daily range): BP systolic 111–157; BP diastolic 59–99; BMI 33.9
[2024-05-17] MEDS: SUBUTEX 1 MG SL ×3 (00:19→08:29)
[2024-05-17] MEDS: CATAPRES PO ×5 (00:20→23:37)
[2024-05-17] MEDS: PRECEDEX 100 IV ×4 (00:25→22:51)
--- NOTE | 2024-05-17 01:00 | PTCARENOTE ---
COWS score 28. Precedex titrated up as needed. Patient incontinent of stool and has thrown stool at the wall. Patient is oriented, denies hallucinations. Unable to state reason for her behavior.
[2024-05-17] MEDS: LR 1000 IV (01:07)
[2024-05-17] MEDS: ZANAFLEX 2 MG PO (02:19)
--- NOTE | 2024-05-17 02:20 | PTCARENOTE ---
Patient continues to be tremulous and agitated. Has not vomited recently. Took Zanaflex with small sip of water. No change in precedex rate.
[2024-05-17 04:13] LABS: % Basophils 0.5 % (0-2); % Eosinophils 0.1 % (0-6); % Immature Granulocytes 1.9 % (0-0.5); % Lymphocytes 19.5 % (20.5-51.1); Absolute Basophils 0.1 10^3/uL (0-0.2); Absolute Immature Granulocytes 0.2 10^3/uL (0-0.05); Absolute Lymphocytes 2.1 10^3/uL (1.2-3.4); Absolute Monocytes 1.4 10^3/uL (0.1-0.6); Hematocrit 29.3 % (37.0-47.0); Hemoglobin 10.2 g/dL (12.0-16.0); Mean Corp Hgb Conc. 34.8 g/dL (33.0-37.0); Mean Corpuscular Hgb 31.6 pg (27.0-31.0); Mean Corpuscular Volume 90.7 fL (81.0-99.0); Mean Platelet Volume 10.5 fL (7.4-10.4); Nucleated Red Blood Cells % 0.2 %; Platelet Count 241 10^3/uL (130-400); Red Blood Cell Count 3.23 10^6/uL (4.20-5.40); Red Cell Dist. Width 14.5 % (11.5-14.5); White Blood Cell Count 10.8 10^3/uL (4.8-10.8)
[2024-05-17 04:29] LABS: Blood Urea Nitrogen < 2 mg/dl (7-17); Calcium 8.1 mg/dl (8.4-10.2); Carbon Dioxide 26 mmol/L (22-30); Chloride 104 mmol/L (98-107); Estimated Creatinine Clearance > 125 ml/min; Glucose 106 mg/dl (70-99); Potassium 2.9 mmol/L (3.5-5.1); Sodium 139 mmol/L (135-145); eGFR > 60.00
--- NOTE | 2024-05-17 04:30 | PTCARENOTE ---
Patient COWS improving. Precedex gtt weaned off. Otherwise physical assessment unchanged. AM labs drawn.
[2024-05-17] MEDS: KCL 270 MEQ IV ×2 (05:24→11:38)
--- NOTE | 2024-05-17 05:45 | PTCARENOTE ---
Precedex gtt has been off since 429. Patient is more tremulous, flushed, restless and anxious. Vomiting and wretching, emesis clear and green bile. Zofran given prn, 1mg Ativan given for COWS 21. Emotional support and encouragement given.
Incontinent of stool, skin care and partial linen change. Left AC SL IV site redressed.
[2024-05-17] MEDS: ZOFRAN 4 MG IV (05:51)
[2024-05-17] MEDS: ATIVAN 1 MG IV (05:51)
[2024-05-17] MEDS: TYLENOL PO ×3 (06:05→20:45)
--- NOTE | 2024-05-17 07:07 | PTCARENOTE ---
Report given verbally to RN assuming care, Disa. Questions answered.
--- NOTE | 2024-05-17 07:15 | PTCARENOTE ---
[facility], restless and tossing and turning in bed. Pt AOx3 but groaning and whining intermittently, states 'I just don't feel good.' Emotional support provided. Pt nauseous and unable to take POs other than SL Subutex. COWs score
18. PRN Compazine administered per protocol with +relief. Pt endorses poor appetite, does not want a meal tray. Pt diaphoretic, flushed, tachycardic and tachypneic. Sa02 96% on room air. Pt with no void, bladder scanned and straight cath'd per
protocol, see flowsheet. Left hand PIV leaking and painful with flush, discontinued at this time. Plan discussed with care team and patient. Safe environment maintained.
--- NOTE | 2024-05-17 08:26 | W.PN.INTV ---
Today's Communication / Plan
Recommendations
Resume Precedex
Continue withdrawal protocol
P.o. as able
Antiemetic therapy
Continue IV fluids
Assessment
-
33-year-old female with history of fentanyl, xylazine abuse, 40-50 bags per day per records, last dose 05/15 at 6:00 in the morning, presents with 'withdrawal symptoms'. Additional history suggests chronic constipation, no bowel movement for about a
month. Patient was given 1 dose of oral tizanidine in the ED. We are asked to help from critical care standpoint
Tachycardia, heart rate 160s
Leukocytosis
Anemia, hemoglobin 10.9
Admission hemoglobin 14.1
Hypokalemia
Mild transaminitis
Positive tox screen (opiates, fentanyl, benzodiazepine)
Obstipation per imaging
Questionable lack of bowel movement for 1 month, emesis preadmission (details unclear)
Patient denies
History of fentanyl/xylazine use, daily
Was being evaluated for inpatient rehabilitation
Conditions present prior to admission
Recent history of dental abscess requiring antibiotics
Recent hospital stay at [facility] for inpatient detoxification 1 month prior
Plan/recommendations
At this time, patient remains critically ill. Heart rate in the 170s, presently in the 110s.
Emesis intermittently throughout the night
Tremulous, tachycardic
Precedex off
Able to tolerate few oral doses of Suboxone and Zanaflex
Moving forward
Continue with supportive care
Remains on IV fluids, lactated Ringer's
Follow-up I's and O's
Advance diet as able. Patient was apparently not tolerating and spitting up oral medications earlier
Resume Precedex
Continue thiamine, folic acid
Xylazine withdrawal protocol will continue
Continue to follow COWS score
Patient denies any alcohol use therefore do not suspect we need MSAS protocol
Will decrease Ativan dose to as needed for extreme agitation
check lipase
Add PPI
Continue tizanidine as able, clonidine per protocol
Patient with xylazine use in the past
DVT prophylaxis: Continue Lovenox
GI prophylaxis: Add PPI
Attempted to contact boyfriend, no answer
According to patient, pts 2 children live with the boyfriend
Reviewed with critical care nursing, respiratory care, pharmacy, case management
Subjective Dataa
Subjective Data
Date of Service:
Date of Service: May 17, 2024
Subjective:
Patient continues to be tremulous, nauseous throughout the night. She was able to take few doses of Zanaflex and Suboxone. COWS elevated as high as 30. Patient lying flat, does not appear to be in respiratory distress but is tremulous
Objective Data
Data Reviewed
Vital Signs / I&O / Oxygen:
Vital Signs
Temp Pulse Resp BP Pulse Ox
98.2 F 111 33 140/62 97
05/17/24 08:14 05/17/24 08:04 05/17/24 08:04 05/17/24 08:04 05/17/24 08:04
Intake and Output
05/16/24 05/17/24 05/18/24
06:59 06:59 06:59
Intake Total 2061.5 / 2224.9 3884.15 / 4051.65 335.0 / 335.0
Output Total 450 / 450 1550 / 1550
Balance 1611.5 / 1774.9 2334.15 / 2501.65 335.0 / 335.0
SaO2 97
Nasal Cannula flow liters per 2
minute
Physical Exam
General: Other (Poor dentition) and Other (Tremulous)
HEENT: Normocephalic
Cardiovascular: S1-S2, Regular Rhythm (Tachycardic), Murmur (n) and Rub (n)
Respiratory: Wheeze (n), Crackles (n), Rhonchi (n), Non-Labored Respirations and Other (Poor respiratory effort)
GI: Soft, Non Distended and Non Tender
Neurology: Awake, Alert and No Motor Deficits (Moves all extremities)
Skin: Cyanosis (n), Jaundice (n) and Rash (n)
Labs/Micro/Reports
Lab Data
05/17/24 03:49
Microbiology
05/15/24 19:30 Blood/Venous Blood Culture - Preliminary
No Growth in 24 hours- Final report to follow
05/15/24 19:28 Blood/Venous Blood Culture - Preliminary
No Growth in 24 hours- Final report to follow
05/15/24 19:28 Nasal Swab Influenza Types A & B (JOSE) - Final
Negative for Influenza A & B, NAAT
Negative results must be combined with clinical observations
and patient history.
Nucleic Acid Amplification test (NAAT)performed on the
[employer] platform.
[2024-05-17] MEDS: SENOKOT-S 1 TABLET PO (08:29)
[2024-05-17] MEDS: FOLVITE 1 MG PO (08:29)
[2024-05-17] MEDS: THIAMINE INJECTION 200 MG IV ×2 (08:30→20:45)
[2024-05-17] MEDS: COMPAZINE 10 MG IV (08:30)
[2024-05-17] MEDS: MIRALAX PO (09:57)
--- NOTE | 2024-05-17 10:21 | PTCARENOTE ---
Precedex restarted per mobile web application developer at 09:58 for ongoing w/d sx. Pt again moving bowels in her bed and throwing on the floor. Spitting up clear liquid in small amount over siderail and retching intermittently. Complete bath and linens changed,
education re: appropriate behavior reinforced. Safe environment maintained.
--- NOTE | 2024-05-17 10:30 | CM ---
CM received call from Trev Rader from [facility] phone number [phone] and he requested CM call him when discharged and update regarding plan of care. CM will continue to follow for discharge planning needs.
Plan; [facility] per chart review.
[2024-05-17] MEDS: SUBUTEX SL ×5 (11:28→23:37)
[2024-05-17 11:54] LABS: Magnesium 1.8 mg/dl (1.6-2.3)
[2024-05-17 12:58] LABS: Lipase 552 U/L (23-300)
--- NOTE | 2024-05-17 13:21 | W.PN.HOSP.TC ---
Today's Communication/Plan
-
COWS protocol
subutex
IVF with KCL
replete lytes aggressively
Precedex
Assessment / Plan
Assessment / Plan
Fentanyl and Xylazine Withdrawal
Severe opiate abuse on daily basis
Tachycardia
Nausea/Vomiting
-patient remains tachy to 150's, with nausea/vomiting and restlessness s/p medication administration above on admission
-restarted on precedex
-Tizanidine now and PRN
-Cont with subutex-per psych
-prn IV ativan
-IV Zofran/Compazine PRN
-LR with KCL.
-advanced diet and monitor. Encourage po intake.
-ICU and Psych recs
Opiate Abuse
-patient is accepted but needs to be medically stabilized first
Constipation 2/2 opiate abuse
-X-ray with e/o constipation but anticipate patient to have loose stools with withdrawal
-had bm in last 24h
-start miralax/senna/colace
Leukocytosis likely stress/reactive/constipation
-No signs of infection. UA negative. Blood cultures in lab. No productive cough. Not concern for pneumonia at this time.
Hypokalemia
Hypophosphatemia
-replete
DVT PPx Lovenox subQ
FULL CODE
Anticipated Discharge: > 48 hours
Subjective/Interval History
-
Date of Service: May 17, 2024
pt with severe nausea vomiting and loose bowel movements at times
Unable to tolerate p.o. intake
Objective Data
-
Labs:
Laboratory Results
05/17/24 05/17/24 05/17/24
03:49 12:00 17:00
WBC 10.8
Hgb 10.2 L
Hct 29.3 L
Plt Count 241
Sodium 139 Cancelled Pending
Potassium 2.9 L Cancelled Pending
Chloride 104 Cancelled Pending
Carbon Dioxide 26 Cancelled Pending
BUN < 2 L Cancelled Pending
Creatinine 0.5 L Cancelled Pending
Glucose 106 H Cancelled Pending
Calcium 8.1 L Cancelled Pending
Vital Signs:
Vital Signs
Temp Pulse Resp BP Pulse Ox
98.4 F 93 37 135/63 94
05/17/24 11:15 05/17/24 11:27 05/17/24 11:02 05/17/24 11:27 05/17/24 11:02
I&O
05/16/24 05/17/24 05/18/24
06:59 06:59 06:59
Intake Total 2061.5 / 2224.9 3884.15 / 4051.65 720.6 / 720.6
Output Total 450 / 450 1550 / 1550
Balance 1611.5 / 1774.9 2334.15 / 2501.65 720.6 / 720.6
Physical Exam
-
General: Appears Chronically Ill and Other (looks older compared to stated age )
HEENT: Normocephalic and Atraumatic
Respiratory: Clear to Auscultation (anteriorly )
Cardiac: Regular Rhythm, S1/S2 and Tachycardic; Negative Murmur, Rub or Gallop
GI: Soft, Nontender, Nondistended and Normal Bowel Sounds; Negative Organomegaly
Rectal: Deferred by Provider
Musculoskeletal: No Clubbing, No Cyanosis and No Edema
Skin: Negative Rash
Neuro: Awake and Nonfocal/Grossly Intact
Psych: Calm
Data Reviewed
-
Total Time Spent with Patient (in minutes): 55
[2024-05-17] MEDS: LR IV (13:22)
--- NOTE | 2024-05-17 13:30 | PTCARENOTE ---
Precedex titrated per order, see flowsheet, currently infusing at 0.5 mcg....pt resting quietly. input output clerk at bedside to assess pt. Plan discussed with attending, IVF changed to LR with 40 meQ Kcl. Pt again incontinent of brown formed BM in bed. Does
not show interest in toileting appropriately. Hygiene care provided. Safe environment maintained.
--- NOTE | 2024-05-17 13:42 | CON.MD ---
Documented by User: Dianna Tejada MD, Resident 05/17/24 14:21
Consultation - Medical
-
CONSULTING PHYSICIAN: Dr. Ada Michaud
REFERRING PHYSICIAN: Dr. Alannah Chaves
DATE/TIME OF REQUEST: 05/17/2024
DATE/TIME OF CONSULTATION: 05/17/2024
REASON FOR CONSULT: Possible herpes infection
HISTORY OF PRESENT ILLNESS: This is a 33 year old 7 para 2 female patient who presented to ED with withdrawal from drug abuse from fentanyl and xylazine. She is presently being treated for withdrawal symptoms. As per nursing, a single
lesion on her left lower buttock near the vaginal area was noticed today which patient was unaware of. Pt does not remember experiencing similar findings before and denies any associated pain, vaginal bleeding, discharge from lesion or fever. She
does endorse regular periods (most recent period a few days ago), is sexually active and states that she does not regularly follow up with OBGYN.
PAST MEDICAL HISTORY: Drug Abuse
PAST SURGICAL HISTORY: delivery
PAST OBSTETRIC HISTORY: section x1 in 2009, 4 abortions, 1 miscarriage
FAMILY HISTORY: Not pertinent
SOCIAL HISTORY: Smoking history present (1pack/day), History of drug abuse (fentanyl/xylazine). No alcohol use.
ALLERGIES: Latex, Sulfa.
REVIEW OF SYSTEMS: Negative other than per HPI.
MEDICATIONS: No regular home medications.
PHYSICAL EXAMINATION:
VITAL SIGNS: Afebrile, BP 135/63 HR 93
GENERAL: On exam, patient in no acute distress.
ABDOMEN: Soft, nontender, nondistended
GENITOURINARY: Very small inflamed lesion on left lower buttock with surrounding mild erythema with minimal discharge present on palpation, likely ingrown hair. Similar ingrown hair finding slightly above initial lesion.
ASSESSMENT AND PLAN:
-Likely inflamed ingrown hair: Would advise conservative measures such as warm compresses at present as lesion does not appear to be actively infected. Watch for any high grade fevers, purulent discharge.

Documented by User: Ada Michaud DO 05/17/24 14:28
Consultation - Medical
-
CONSULTING PHYSICIAN: Dr. Ada Michaud
REFERRING PHYSICIAN: Dr. Alannah Chaves
DATE/TIME OF REQUEST: 05/17/2024
DATE/TIME OF CONSULTATION: 05/17/2024
REASON FOR CONSULT: Possible herpes infection
HISTORY OF PRESENT ILLNESS: This is a 33 year old 8 para 2 female patient who presented to ED with withdrawal from drug abuse from fentanyl and xylazine. She is presently being treated for withdrawal symptoms. As per nursing, a single
lesion on her left lower buttock near the vaginal area was noticed today which patient was unaware of. Pt does not remember experiencing similar findings before and denies any associated pain, vaginal bleeding, discharge from lesion or fever. She
does endorse regular periods (most recent period a few days ago), is sexually active and states that she does not regularly follow up with OBGYN. She denies any history of herpes outbreak or sexually transmitted diseases.
PAST MEDICAL HISTORY: Drug Abuse
PAST SURGICAL HISTORY: delivery
PAST OBSTETRIC HISTORY: section x1 in 2009, 4 abortions, 1 miscarriage, SVDx1
FAMILY HISTORY: Not pertinent
SOCIAL HISTORY: Smoking history present (1pack/day), History of drug abuse (fentanyl/xylazine). No alcohol use.
ALLERGIES: Latex, Sulfa.
REVIEW OF SYSTEMS: Negative other than per HPI.
MEDICATIONS: No regular home medications.
PHYSICAL EXAMINATION:
VITAL SIGNS: Afebrile, BP 135/63 HR 93
GENERAL: On exam, patient in no acute distress.
ABDOMEN: Soft, nontender, nondistended
GENITOURINARY: Very small inflamed lesion on left lower buttock with surrounding mild erythema with minimal discharge present on palpation, white head present, small amount of drainage when probed, likely ingrown hair. Similar ingrown hair finding
slightly above initial lesion with no white head. Neither lesion tender to palpation
ASSESSMENT AND PLAN:
-Likely ingrown hair/white head: Would advise conservative measures such as warm compresses at present as lesion does not appear to be actively infected. Watch for any high grade fevers, purulent discharge. Lesion does not appear consistent with
herpes outbreak.
[2024-05-17] MEDS: KCL 1020 MEQ IV (13:46)
[2024-05-17] MEDS: NSS (PRESERVATIVE FREE) 10 ML IV (14:25)
[2024-05-17] MEDS: PROTONIX IV 40 MG IV (14:25)
[2024-05-17] MEDS: LOVENOX 40 MG SC (17:34)
[2024-05-17 18:32] LABS: Blood Urea Nitrogen < 2 mg/dl (7-17); Carbon Dioxide 27 mmol/L (22-30); Estimated Creatinine Clearance > 125 ml/min; Glucose 102 mg/dl (70-99); Magnesium 1.9 mg/dl (1.6-2.3); eGFR > 60.00
[2024-05-17 18:40] LABS: Chloride 107 mmol/L (98-107); Potassium 3.5 mmol/L (3.5-5.1); Sodium 140 mmol/L (135-145)
--- NOTE | 2024-05-17 19:22 | PTCARENOTE ---
Pt remained calm this afternoon -Precedex continues-pt resting when undisturbed, easily aroused to voice. Followup BMP sent, results noted. Handoff report given to night RN Tamiko. Safe environment maintained.
[2024-05-17] MEDS: SENOKOT-S PO (19:24)
--- NOTE | 2024-05-17 20:00 | PTCARENOTE ---
Patient received lying in bed, restless and turning from side to side on occasion. COWS 9. On Precedex gtt at 0.7mcg/kg/hr. Remains tremulous. Slight nausea. BBS clear. S1S2 regular. SR on CM with borderline 1st degree AVB. Pulses positive x 4
extrem. Denies urge to void. No BM. Low grade temp 99.4F. Cooperative, rouses easily. Resting quietly when undisturbed.
[2024-05-18] VITALS (9 sets, daily range): BP systolic 117–160; BP diastolic 68–97
--- NOTE | 2024-05-18 | PTCARENOTE ---
Patient is awake while on Precedex gtt. She is conversational, calm but nauseated. No tremors noted. Taking po ice chips in small amounts. Denies urge to void. Bladder scanned for 126cc urine. Able to call boyfriend on cell phone.
[2024-05-18] MEDS: KCL 1020 MEQ IV (02:20)
[2024-05-18] MEDS: SUBUTEX SL (03:26)
[2024-05-18] MEDS: PRECEDEX 100 IV (05:00)
[2024-05-18] MEDS: TYLENOL 1000 MG PO (05:49)
[2024-05-18] MEDS: CATAPRES 0.1 MG PO ×2 (05:49→11:40)
[2024-05-18 06:29] LABS: % Basophils 0.5 % (0-2); % Lymphocytes 23.7 % (20.5-51.1); % Monocytes 12.7 % (1.7-9.3); % Neutrophils 61.1 % (42.2-75.2); Absolute Immature Granulocytes 0.2 10^3/uL (0-0.05); Absolute Lymphocytes 1.9 10^3/uL (1.2-3.4); Hematocrit 29.3 % (37.0-47.0); Hemoglobin 10.3 g/dL (12.0-16.0); Mean Corp Hgb Conc. 35.2 g/dL (33.0-37.0); Mean Corpuscular Hgb 32.1 pg (27.0-31.0); Mean Corpuscular Volume 91.3 fL (81.0-99.0); Mean Platelet Volume 9.6 fL (7.4-10.4); Nucleated Red Blood Cells % 0.2 %; Platelet Count 197 10^3/uL (130-400); Red Blood Cell Count 3.21 10^6/uL (4.20-5.40); Red Cell Dist. Width 14.5 % (11.5-14.5); White Blood Cell Count 8.2 10^3/uL (4.8-10.8)
[2024-05-18 06:51] LABS: Blood Urea Nitrogen 3 mg/dl (7-17); Calcium 8.7 mg/dl (8.4-10.2); Carbon Dioxide 23 mmol/L (22-30); Chloride 110 mmol/L (98-107); Estimated Creatinine Clearance 123 ml/min; Glucose 110 mg/dl (70-99); Magnesium 1.8 mg/dl (1.6-2.3); Potassium 4.1 mmol/L (3.5-5.1); Sodium 140 mmol/L (135-145); eGFR > 60.00
--- NOTE | 2024-05-18 07:31 | PTCARENOTE ---
Received pt awake & alert, incontinent of formed brown stool. Pt states she feels better and plans to leave today. Discussed POC w/ pt. Pt calm, follows commands. VSS. L PIV leaking. Precedex gtt and IVFs on standby. IV team notified for new IV. Pt
w/ no urine output overnight. Bladder scanned for 171ml.
--- NOTE | 2024-05-18 07:45 | W.PN.INTV ---
Today's Communication / Plan
Recommendations
Continue Suboxone, side effects per protocol
Discontinue Precedex at noon
Continue IV fluids till completion, advance diet
Nausea improved
Hopefully will pursue inpatient rehab in the near future
Assessment
-
33-year-old female with history of fentanyl, xylazine abuse, 40-50 bags per day per records, last dose 05/15 at 6:00 in the morning, presents with 'withdrawal symptoms'. Additional history suggests chronic constipation, no bowel movement for about a
month. Patient was given 1 dose of oral tizanidine in the ED. We are asked to help from critical care standpoint
Tachycardia, heart rate 160s
Leukocytosis
Anemia, hemoglobin 10.9
Admission hemoglobin 14.1
Hypokalemia
Mild transaminitis
Positive tox screen (opiates, fentanyl, benzodiazepine)
Obstipation per imaging
Questionable lack of bowel movement for 1 month, emesis preadmission (details unclear)
Patient denies
History of fentanyl/xylazine use, daily
Was being evaluated for inpatient rehabilitation
Conditions present prior to admission
Recent history of dental abscess requiring antibiotics
Recent hospital stay at [facility] for inpatient detoxification 1 month prior
Plan/recommendations
At this time, patient appears to be improved overall
Less tremulous, less tachycardic
Stating to staff that she wants to go home today
Able to tolerate few oral doses of Suboxone and Zanaflex
Potassium improved
Moving forward
Continue with supportive care
Discontinue Precedex
Continue Zanaflex, Suboxone per protocol
Resume Precedex
Continue thiamine, folic acid
Xylazine withdrawal protocol will continue
Continue to follow COWS score, improving
Lipase 552 on 05/17/2024
Nausea appears to be improved
Continue tizanidine as able, clonidine per protocol
Patient with xylazine use in the past
DVT prophylaxis: Continue Lovenox
GI prophylaxis: Continue PPI
Unfortunately, patient is stating she will be going home today
Concerned about leaving AMA
Reviewed with critical care nursing, respiratory care, pharmacy, case management
Subjective Dataa
Subjective Data
Date of Service:
Date of Service: May 18, 2024
Subjective:
Overall, patient appears to be improved. COWS score has decreased to 9. Potassium improved. She does get agitated at times, states she will be going home today.
Objective Data
Data Reviewed
Vital Signs / I&O / Oxygen:
Vital Signs
Temp Pulse Resp BP Pulse Ox
98.4 F 59 19 149/97 96
05/18/24 07:34 05/18/24 06:22 05/18/24 06:22 05/18/24 06:22 05/18/24 06:22
Intake and Output
05/17/24 05/18/24 05/19/24
06:59 06:59 06:59
Intake Total 3884.15 / 4051.65 2788.3 / 2795.1 6.8 / 6.8
Output Total 1550 / 1550 450 / 450
Balance 2334.15 / 2501.65 2338.3 / 2345.1 6.8 / 6.8
SaO2 96
Nasal Cannula flow liters per 2
minute
Physical Exam
General: Comfortable, Other (Poor dentition) and Other (Tremulous)
HEENT: Normocephalic
Cardiovascular: S1-S2, Regular Rhythm (Tachycardic), Murmur (n) and Rub (n)
Respiratory: Wheeze (n), Crackles (n), Rhonchi (n), Non-Labored Respirations and Other (Poor respiratory effort)
GI: Soft, Non Distended and Non Tender
Neurology: Lethargic (Sleeping but arousable) and Other (Moving all extremities, less tremulous)
Skin: Cyanosis (n), Jaundice (n) and Rash (n)
Labs/Micro/Reports
Lab Data
05/18/24 06:05
05/18/24 06:05
Microbiology
05/15/24 19:28 Blood/Venous Blood Culture - Preliminary
No Growth in 48 hours- Final report to follow
05/15/24 19:30 Blood/Venous Blood Culture - Preliminary
No Growth in 48 hours- Final report to follow
05/15/24 19:28 Nasal Swab Influenza Types A & B (JOSE) - Final
Negative for Influenza A & B, NAAT
Negative results must be combined with clinical observations
and patient history.
Nucleic Acid Amplification test (NAAT)performed on the
[employer] platform.
[2024-05-18] MEDS: MIRALAX 17 GRAMS PO (07:49)
[2024-05-18] MEDS: PROTONIX IV 40 MG IV (07:49)
[2024-05-18] MEDS: NSS (PRESERVATIVE FREE) 10 ML IV (07:49)
[2024-05-18] MEDS: SUBUTEX 1 MG SL (07:50)
[2024-05-18] MEDS: SENOKOT-S 1 TABLET PO (07:51)
[2024-05-18] MEDS: THIAMINE INJECTION 200 MG IV (07:51)
[2024-05-18] MEDS: FOLVITE 1 MG PO (07:51)
[2024-05-18] MEDS: ZANAFLEX 2 MG PO (08:01)
[2024-05-18] MEDS: SUBUTEX 2 MG SL (11:40)
[2024-05-18] MEDS: ZOFRAN 4 MG IV (12:10)
--- NOTE | 2024-05-18 12:20 | PTCARENOTE ---
Patient given 2mg SL Subutex, Precedex drip dc'd. Pt instructed to wait for MD foster. 45 minutes later Pt refusing to stay any longer, asking to leave AMA as previously discussed w/ Dr Telles. Pt arranged a LYFT oyster picker. PT vomited once. This RN gave
Zofran. Educated pt on staying to receive treatment. Pt adamant about leaving. Dr Telles at bedside. AMA paperwork signed. IV removed.
--- NOTE | 2024-05-18 12:44 | W.PN.HOSP.TC ---
Today's Communication/Plan
-
Left AMA
Assessment / Plan
Assessment / Plan
Fentanyl and Xylazine Withdrawal
Severe opiate abuse on daily basis
Tachycardia
Nausea/Vomiting
-patient remains tachy to 150's, with nausea/vomiting and restlessness s/p medication administration above on admission
-Weaned off Precedex drip
-Tizanidine now and PRN
-Cont with subutex-per psych
-prn IV ativan
-IV Zofran/Compazine PRN
-LR with KCL.
-advanced diet and monitor. Encourage po intake.
-ICU and Psych recs
Opiate Abuse
-patient is accepted but needs to be medically stabilized first
Constipation 2/2 opiate abuse
-X-ray with e/o constipation but anticipate patient to have loose stools with withdrawal
-had bm in last 24h
-start miralax/senna/colace
Leukocytosis likely stress/reactive/constipation
-No signs of infection. UA negative. Blood cultures in lab. No productive cough. Not concern for pneumonia at this time.
Hypokalemia
Hypophosphatemia
-replete
DVT PPx Lovenox subQ
FULL CODE
Patient with prolonged discussion I recommended patient to be monitored in the hospital and continue with aggressive medical care with IV fluids antinausea medication, monitoring of oral intake and continue with opioid withdrawal protocol and seek
treatment and management plan for additional consultants. Patient insisting on going home and signed AGAINST MEDICAL ADVICE form. Patient understand the risk of undergoing opioid withdrawal with severe nausea, vomiting leading to hypotension and
. Will prescribe patient some Subutex as patient did verbalize understanding and stated of following up outpatient and going to inpatient detox center. States she was called and inpatient detox center and follow-up. Discussed case briefly
with psych.
More than 30 minutes spent in discharge including
Final examination of the patient
Summarizing hospital stay
Instructions for continuing care to all relevant caregivers
Preparation of discharge records, prescriptions, and referral forms
Total time spent (in minutes): 55
Anticipated Discharge: Today
Subjective/Interval History
-
Date of Service: May 18, 2024
Patient with improvement in nausea vomiting. However remains with severe decrease in p.o. intake
Patient was weaned off Precedex drip patient insisted on going home as her monitoring coordinator with influenza and wants to go home. States she will call outpatient detox center and follow-up.
Objective Data
-
Labs:
Laboratory Results
05/18/24
06:05
WBC 8.2
Hgb 10.3 L
Hct 29.3 L
Plt Count 197
Sodium 140
Potassium 4.1
Chloride 110 H
Carbon Dioxide 23
BUN 3 L
Creatinine 0.7
Glucose 110 H
Calcium 8.7
Vital Signs:
Vital Signs
Temp Pulse Resp BP Pulse Ox
97.9 F 68 18 146/84 98
05/18/24 11:14 05/18/24 12:00 05/18/24 12:00 05/18/24 11:40 05/18/24 08:00
I&O
05/17/24 05/18/24 05/19/24
06:59 06:59 06:59
Intake Total 3884.15 / 4051.65 2788.3 / 2795.1 434.0 / 434.0
Output Total 1550 / 1550 450 / 450
Balance 2334.15 / 2501.65 2338.3 / 2345.1 434.0 / 434.0
Physical Exam
-
General: Appears Chronically Ill and Other (looks older compared to stated age )
HEENT: Normocephalic and Atraumatic
Cardiac: S1/S2 and Tachycardic; Negative Murmur, Rub or Gallop
GI: Soft, Nontender, Nondistended and Normal Bowel Sounds; Negative Organomegaly
Rectal: Deferred by Provider
Musculoskeletal: No Clubbing, No Cyanosis and No Edema
Skin: Negative Rash
Neuro: Awake, Alert, Oriented, AO x 3, No Motor Deficits and Nonfocal/Grossly Intact
Psych: Anxious
--- NOTE | 2024-05-18 12:46 | W.DCSUMMARY ---
Discharge Summary
Discharge Data
Date of Admission: 05/15/24
Date of Discharge: 05/18/24
-
Pending Results: No
Hospital Course
33-year-old female past medical history of significant opioid abuse of fentanyl and xylazine who is presenting with complaints of withdrawal and medical clearance for inpatient detox rehab. Patient was admitted to medical ICU as patient with high
risk of significant opioid withdrawal. Patient was on Precedex drip since Subutex. Patient was started on IV fluid. Patient was on antinausea meds as needed. Electrolytes were repleted aggressively. Panel Lay Up Worker and psychiatry was consulted.
Patient received Ativan as needed. Patient symptoms slowly improved. Patient heart rate significantly improved with IV fluid resuscitation. Subutex significantly helped patient. Patient was being followed by B cares and case management. Patient
symptoms were slowly improving. Patient was not able to tolerate significant amount of oral intake. Patient decided that she has to leave AGAINST MEDICAL ADVICE as she has to take care of her kids. Patient was offered to continue receiving
treatment in the hospital with receiving aggressive IV medication, intravenous fluids, antinausea meds as needed and monitor oral intake and monitor laboratory values closely. Patient was stated she is increasing risk of severe opioid withdrawal,
nausea, vomiting, hypertension and . Patient verbalized understanding signed the AMA form and left. Patient is increased risk of opiate withdrawal and Subutex was prescribed to the patient. Patient did verbalize understanding that once her
social situation has improved she will call and and go to inpatient detox rehab center.
Discharge Plan
-
Patient Disposition: Against Medical Advice
Discharge Diagnosis/Procedures: Fentanyl and Xylazine Withdrawal
Severe opiate abuse on daily basis
Tachycardia
Nausea/Vomiting
Referrals:
UNKNOWN - PT NOT,INTERVIEWE [Family Provider] -
Prescriptions:
New
buprenorphine HCl 2 mg Tablet, Sublingual
2 mg sublingual Q6H Qty: 14 0RF
Discharge Date and Time
Discharge Date/Time: 05/18/24 12:34
Print Language: TAMAZIGHT
--- NOTE | 2024-05-18 12:46 | W.[place]-PDMP ---
[place]-PDMP
-
Checked the [place]- Prescription Drug Monitoring Program website, no red flags identified; safe to proceed with prescription.
== END 2024-05-18 12:34 | disposition left against medical advice (07) | DRG 894 ==
LOC: ICU 18:50
PROVIDERS: Nurse Practitioner Family; ADMITTING PHYSICIAN Student in an Organized Health Care Education/Training Program; ATTENDING PHYSICIAN Hospitalist; CONSULT PHYSICIAN Student in an Organized Health Care Education/Training Program; EMERGENCY PHYSICIAN Emergency Medicine; OTHER PHYSICIAN Internal Medicine Critical Care Medicine; OTHER PHYSICIAN Psychiatry & Neurology Psychiatry
DX: F11.23 Opioid dependence with withdrawal (principal); F13.139 Sedative, hypnotic or anxiolytic abuse with withdrawal, unspecified; D64.9 Anemia, unspecified; D72.829 Elevated white blood cell count, unspecified; E87.6 Hypokalemia; L73.1 Pseudofolliculitis barbae; K59.03 Drug induced constipation; F17.210 Nicotine dependence, cigarettes, uncomplicated; Z11.52 Encounter for screening for COVID-19; Z88.2 Allergy status to sulfonamides
CPT/HCPCS: 71045; 74018; 80048; 80053; 80306; 80307; 81003; 82247; 82248; 83690; 83735; 84075; 84100; 84450; 84460; 84703; 85025; 85610; 85730; 87040; 87502; 87811; 93005; 96361; 96372; 96374; 96375; 96376; 99291